=== PATIENT | female | born 1980 | race Caucasian/White ===

== ENCOUNTER 2016-06-18 16:26 | Emergency (ER) | payer OTHER ==
[~2016-06-18] VITALS: Ht 154.9 cm; Wt 50.0 kg
[~2016-06-18 16:26] MED LIST: CLOTCRE17 TOP
[2016-06-18 16:29] VITALS: BP 125/56; PULSE 79; RESP 12; TEMP 97.5; O2SAT 95
--- NOTE | 2016-06-18 18:19 | PD ---
HPI Chief Complaint: Abdominal Pain Time Seen by Provider: 18:19 Travel History International Travel<30 days: No Contact w/Intl Traveler<30days: No Traveled to known affect area: No History of Present Illness HPI 35-year-old female persist to the emergency department for evaluation of lower abdominal pain for 2 days. Describes it as a sharp pain that is constant. Denies any aggravating or alleviating factors. Denies any fever, chills, nausea , vomiting, diarrhea, constipation, bloody stool, dysuria, burning with urination, hematuria, vaginal discharge. States that her last menstrual period was 3 weeks ago. Denies any prior treatment. Denies any prior abdominal surgeries. Denies any medical conditions. She is sexually active but denies any new sexual partners in the last 6 months. No other complaints. PFSH Past Medical History Medical History: Denies Significant Hx Diminished Hearing: No Immunizations Current: Yes ?: Not LMP: 05/2016 Para: 2 Past Surgical History Gynecologic Surgery: Yes (cyst removal from ovary) Other Surgery: Yes (LT BREAST BX) Social History Alcohol Use: No Tobacco Use: No Substance Use: No Allergies-Medications (Allergen,Severity, Reaction): Coded Allergies: Augmentin (Verified Allergy, Mild, RASH A CHILD, 06/18/16) Reported Meds & Prescriptions Reported Meds & Active Scripts Active No Active Prescriptions or Reported Medications Review of Systems Except as stated in HPI: all other systems reviewed are Neg Physical Exam Narrative GENERAL: Well-nourished and well-developed female patient in no acute distress who is nontoxic appearing. SKIN: Warm and dry. HEAD: Normocephalic and atraumatic. EYES: No injection, drainage, or hyphema noted. PERRLA. EOMI. ENT: No nasal drainage noted. Oropharynx is clear. NECK: Supple and the trachea is midline. CARDIOVASCULAR: Regular rate and rhythm. RESPIRATORY: Breath sounds are equal bilaterally with no accessory muscle use, wheezing, rhonchi, or crackles. GASTROINTESTINAL: Mild suprapubic tenderness to palpation. Negative McBurney's point. Negative Phan sign. No rebound tenderness or guarding. Abdomen is soft and nondistended. GENITOURINARY: Normal external genitalia without lesions or erythema. Vaginal vault with scant white discharge. Cervical os was closed without drainage. No cervical motion tenderness. Uterus nontender and nonenlarged. Bilateral adnexa nontender without masses. Performed in the presence of Ava WEEMS. MUSCULOSKELETAL: No obvious deformities, swelling, cyanosis, or ecchymosis is present throughout the upper and lower extremities. Patient has full range of motion without any signs of neurovascular compromise. NEUROLOGICAL: Awake, alert, and oriented. Normal speech and gait. Cranial nerves are grossly intact. Data Data Last Documented VS Vital Signs Date Time Temp Pulse Resp B/P Pulse Ox O2 Delivery O2 Flow Rate FiO2 06/18/16 16:29 97.5 79 12 125/56 95 Room Air Orders Gc And Chlamydia Pcr (06/18/16 18:18) Wet Prep Profile (06/18/16 18:18) Urinalysis - C+S If Indicated (06/18/16 18:18) Ed Urine Pregnancytest Poc (06/18/16 18:18) Labs Laboratory Tests Test 06/18/16 18:35 Clue Cells (Wet Prep) NONE SEEN Vaginal Trichomonas (Wet Prep) NONE SEEN Vaginal Yeast (Wet Prep) NONE SEEN MDM Medical Decision Making Medical Screen Exam Complete: Yes Emergency Medical Condition: Yes Differential Diagnosis UTI versus vaginitis versus cervicitis Narrative Course 35-year-old female presents to the emergency department for evaluation of suprapubic pain for 2 days. Patient is afebrile, vital signs are stable. Abdominal examination is essentially benign. Patient has some mild suprapubic tenderness. Pelvic examination shows that she has some scant white discharge but no cervical motion tenderness. ED urine test is negative. 1900 patient eloped before results were back. Wet prep is negative. Gonorrhea and chlamydia is pending. Unfortunately the urinalysis was never sent. Diagnosis Primary Impression: Abdominal pain Qualified Code: R10.30 - Lower abdominal pain Additional Impression: Left against medical advice Scripts No Active Prescriptions or Reported Meds Disposition: 07 AGAINST MEDICAL ADVICE Cathy Leong Jun 18, 2016 18:19
[2016-06-18 21:08] LABS: CHLAMYDIA PCR NOT DETECTED (NOT DETECT); NEISSERIA PCR NOT DETECTED (NOT DETECT)
[2016-06-18] MEDS ORDERED: PYRI200T4 PO (23:35)
[2016-06-18] MEDS ORDERED: BACT800T5 PO (23:35)
== END 2016-06-18 21:00 | disposition left against medical advice (07) ==
LOC: NETRI 16:26
DX: R10.30 Lower abdominal pain, unspecified (principal)
CPT/HCPCS: 87210; 87491; 87591; 99284

== ENCOUNTER 2016-06-18 21:11 | Emergency (ER) | payer OTHER ==
[~2016-06-18] VITALS: Ht 154.9 cm; Wt 55.0 kg
[2016-06-18 21:12] VITALS: BP 115/64; PULSE 98; RESP 16; TEMP 97.8; O2SAT 97
--- NOTE | 2016-06-18 23:08 | PD ---
HPI Chief Complaint: Abdominal Pain Time Seen by Provider: 22:51 Travel History International Travel<30 days: No Contact w/Intl Traveler<30days: No Traveled to known affect area: No History of Present Illness HPI The patient is a 35-year-old female who presents to the emergency department for dysuria. Patient notes a 1-2 day history of suprapubic discomfort, dysuria, frequency, and mild urgency. The patient was seen in the emergency department earlier today and underwent examination including a pelvic examination with wet prep and gonorrhea/chlamydia. Wet prep was negative and a gonorrhea/chlamydia were negative. However, the patient left prior to having a UA sent to lab. The patient denies any nausea, vomiting, diarrhea, Josué pain , but does note mild suprapubic discomfort. She denies any associated fever, chills, or sweats. Symptoms are mild to moderate, no known alleviating or exacerbating factors. PFSH Past Medical History Diminished Hearing: No Immunizations Current: Yes ?: Not LMP: LAST MONTH Para: 2 Ovarian Cysts: Yes (removed) Past Surgical History Gynecologic Surgery: Yes (cyst removal from ovary) Other Surgery: Yes (LT BREAST BX) Social History Alcohol Use: No Tobacco Use: No Substance Use: No Allergies-Medications (Allergen,Severity, Reaction): Coded Allergies: Augmentin (Verified Allergy, Mild, RASH A CHILD, 06/18/16) Reported Meds & Prescriptions Reported Meds & Active Scripts Active No Active Prescriptions or Reported Medications Review of Systems Except as stated in HPI: all other systems reviewed are Neg General / Constitutional: No: Fever Gastrointestinal: No: Nausea, Vomiting, Diarrhea, Abdominal Pain Genitourinary: Positive: Urgency, Frequency, Dysuria, Pelvic Pain (suprapubic discussed), No: Hematuria, Discharge, Vaginal Bleeding Musculoskeletal: No: Myalgias Skin: No Rash Physical Exam Narrative GENERAL: Awake, alert, nontoxic-appearing 35-year-old female who appears her stated age and is in no acute respiratory distress. SKIN: Warm and dry. HEAD: Atraumatic. Normocephalic. EYES: Pupils equal and round. Extra. The right eye. ENT: No nasal bleeding or discharge. Mucous membranes pink and moist. NECK: Trachea midline. No JVD. GASTROINTESTINAL: Abdomen soft, mild suprapubic tenderness. No rebound tenderness. Back: No CVA tenderness. MUSCULOSKELETAL: No obvious deformities. No clubbing. No cyanosis. No edema. NEUROLOGICAL: Awake and alert. No obvious cranial nerve deficits. Motor grossly within normal limits. Normal speech. PSYCHIATRIC: Appropriate mood and affect; insight and judgment normal. Data Data Last Documented VS Vital Signs Date Time Temp Pulse Resp B/P Pulse Ox O2 Delivery O2 Flow Rate FiO2 06/18/16 21:12 97.8 98 16 115/64 97 Room Air Orders Urinalysis - C+S If Indicated (06/18/16 23:01) Ed Urine Pregnancytest Poc (06/18/16 23:01) Labs Laboratory Tests Test 06/18/16 23:00 Urine Color YELLOW Urine Turbidity HAZY Urine pH 5.5 Urine Specific Fossil 1.033 Urine Protein TRACE mg/dL Urine Glucose (UA) NEG mg/dL Urine Ketones 10 mg/dL Urine Occult Blood TRACE Urine Nitrite NEG Urine Bilirubin NEG Urine Urobilinogen LESS THAN 2.0 MG/DL Urine Leukocyte Esterase NEG Urine RBC 1 /hpf Urine WBC 2 /hpf Urine Squamous Epithelial 1 /hpf Cells Urine Mucus MOD /lpf Microscopic Urinalysis Comment CULT NOT INDICATED MDM Medical Decision Making Medical Screen Exam Complete: Yes Emergency Medical Condition: Yes Medical Record Reviewed: Yes Interpretation(s) Laboratory Tests Test 06/18/16 23:00 Urine Color YELLOW Urine Turbidity HAZY Urine pH 5.5 Urine Specific Fossil 1.033 Urine Protein TRACE mg/dL Urine Glucose (UA) NEG mg/dL Urine Ketones 10 mg/dL Urine Occult Blood TRACE Urine Nitrite NEG Urine Bilirubin NEG Urine Urobilinogen LESS THAN 2.0 MG/DL Urine Leukocyte Esterase NEG Urine RBC 1 /hpf Urine WBC 2 /hpf Urine Squamous Epithelial 1 /hpf Cells Urine Mucus MOD /lpf Microscopic Urinalysis Comment CULT NOT INDICATED Differential Diagnosis Differential diagnosis includes cystitis, UTI, cervicitis, PID, atypical appendicitis, vaginitis, pyelonephritis. Narrative Course I UA was sent to lab. Bedside UA test was obtained, was negative. I reviewed the patient's EMR, she had a pelvic exam performed earlier today by Cathy Leong PA-C, which was unremarkable. The patient had a wet prep performed earlier which was negative as well as gonorrhea and chlamydia which were negative. UA is unremarkable. However, I do not believe the patient has a kidney stone, she has no significant pain. Patient has symptoms consistent with cystitis. I will treat with Bactrim and pirating AVM, she is advised to follow-up with urology if symptoms persist. Diagnosis Primary Impression: Cystitis Patient Instructions: General Instructions Additional Instructions: Medications as directed. Follow-up with urology if symptoms persist. Symptoms sometimes are secondary to interstitial cystitis and/or inflammatory cystitis and not a true infection. Med/Other Pt SpecificInfo: Prescription(s) given Scripts Phenazopyridine (Pyridium)200 Mg Jog199 Mg PO Q8H PRN (DYSURIA) 2 Days Ref 0 Prov:Karl Perdomo MD 06/18/16 Sulfamethoxazole-Trimethoprim (Bactrim DS)800-160 Mg Tab1 Tab PO BID #6 TAB Ref 0 Prov:Karl Perdomo MD 06/18/16 Disposition: 01 DISCHARGE HOME Condition: Stable Karl Perdomo MD Jun 18, 2016 23:08
[2016-06-18 23:25] LABS: BLOOD, URINE TRACE (NEG); COMMENT (UR) CULT NOT INDICATED; CULTURE IF INDICATED CULT NOT INDICATED; GLUCOSE,URINE NEG (NEG); KETONE, URINE 10 mg/dL (NEG); MUCUS URINE MOD /lpf (OCC); NITRITE,URINE NEG (NEG); PH, URINE 5.5 (5.0-8.5); SQUAMOUS EPITHELIAL CELL URINE 1 /hpf (0-5); URINE COLOR YELLOW (YELLW/STRAW)
[2016-06-18] MEDS ORDERED: PYRI200T4 PO (23:35)
[2016-06-18] MEDS ORDERED: BACT800T5 PO (23:35)
== END 2016-06-18 23:50 | disposition home or self-care (01) ==
LOC: NEPD 21:11
DX: N30.90 Cystitis, unspecified without hematuria (principal)
CPT/HCPCS: 81001; 84703; 99283

== ENCOUNTER → 2017-05-28 | Outpatient (CLI) | payer OTHER ==
[~2017-05-28] MED LIST changes: +BACT800T5 PO; -CLOTCRE17 TOP; +PYRI200T4 PO
--- NOTE | 2017-05-28 14:50 | EKG ---
Date Performed: 05/28/2017 Time Performed: 09:36:08 PTAGE: 36 years EKG: Sinus rhythm LEFT ATRIAL ENLARGEMENT MINIMAL ST DEPRESSION ABNORMAL ECG NO PREVIOUS TRACING DOCTOR: Fareed Warren Interpretating Date/Time 05/28/2017 14:49:12
== END ==
LOC: HCAV 09:25
DX: F33.1 Major depressive disorder, recurrent, moderate (principal); F41.1 Generalized anxiety disorder; F90.9 Attention-deficit hyperactivity disorder, unspecified type; R94.31 Abnormal electrocardiogram [ECG] [EKG]
CPT/HCPCS: 93005

== ENCOUNTER 2017-06-29 22:43 | Emergency (ER) | payer OTHER ==
[2017-06-29] MEDS: HYOSCYAMINE 0.125 MG TAB PO (23:20)
== END 2017-06-30 00:22 | disposition home or self-care (01) ==
LOC: NEPD 06-30 00:22
DX: K52.9 Noninfective gastroenteritis and colitis, unspecified (principal); R09.89 Other specified symptoms and signs involving the circulatory and respiratory systems; R05 Cough; R09.81 Nasal congestion
CPT/HCPCS: 99284

== ENCOUNTER 2017-09-02 06:36 | Emergency (ER) | payer OTHER ==
[~2017-09-02 06:36] MED LIST changes: -BACT800T5 PO; +LEVS0.124 SL; -PYRI200T4 PO; +ZOFR4TAB3 SL
[2017-09-02 06:46] VITALS: BP 127/80; PULSE 90; RESP 18; TEMP 98.7; O2SAT 97
[2017-09-02] MEDS ORDERED: SODIUM CHLOR 0.9% 1000 ML INJ 1,000 ML IV SCH (07:43)
[2017-09-02] MEDS ORDERED: DEXAMETHASONE SOD PHOS 4 MG/ML VIAL IV PUSH ONE (07:45)
[2017-09-02] MEDS ORDERED: SODIUM CHLORIDE 0.9% FLUSH 10 ML FLUSH IV FLUSH PRN (07:45)
[2017-09-02] MEDS ORDERED: KETOROLAC TROMETHAMINE 30 MG/ML (IVP) VIAL IV PUSH ONE (07:45)
[2017-09-02] MEDS ORDERED: CLINDAMYCIN 600 MG/NS PREMIX 50 ML IV ONE (07:45)
[2017-09-02] MEDS ORDERED: IBUP1TAB7 PO (07:49)
[2017-09-02] MEDS ORDERED: TRAM50TA PO (07:49)
[2017-09-02] MEDS ORDERED: PERI0.126 SWISH-SPIT (07:49)
[2017-09-02] MEDS ORDERED: CLIN150C14 PO (07:49)
[2017-09-02] MEDS ORDERED: PRED-503 PO (07:49)
--- NOTE | 2017-09-02 07:49 | PD ---
HPI Chief Complaint: Facial Pain or Swelling Time Seen by Provider: 07:34 Travel History International Travel<30 days: No Contact w/Intl Traveler<30days: No Traveled to known affect area: No History of Present Illness HPI 36-year-old female presents to the emergency department with complaint of left upper tooth pain and left-sided facial swelling that started yesterday. Denies sore throat, difficulty swallowing, unusual drooling. Denies fever, vomiting. Has tried using an emergency dental kit with no relief of symptoms. Has not taken any medications to try to alleviate her symptoms. Rates pain 7/10. Describes it as a throbbing sensation. Pain is constant. No known relieving factors. Has a primary care provider but does not know the name. Allergies to Augmentin. Denies significant past medical history. Has no other medical complaints. No other modifying factors or associated signs and symptoms. PFSH Past Medical History ADHD: Yes Anxiety: Yes Depression: Yes Cardiovascular Problems: Yes (unknown valve issue) Diminished Hearing: No Immunizations Current: Yes ?: Not Para: 2 Ovarian Cysts: Yes (removed) Past Surgical History Gynecologic Surgery: Yes (cyst removal from ovary) Other Surgery: Yes (LT BREAST BX) Social History Alcohol Use: No Tobacco Use: No Substance Use: No Allergies-Medications (Allergen,Severity, Reaction): Coded Allergies: amoxicillin (Verified Allergy, Mild, RASH A CHILD, 09/02/17) clavulanic acid (Verified Allergy, Mild, RASH A CHILD, 09/02/17) Reported Meds & Prescriptions Reported Meds & Active Scripts Active Peridex Liq (Chlorhexidine Gluconate (Mouth) Liq) 0.12% Soln 15 Ml SWISH-SPIT BID 10 Days Ibuprofen 800 Mg Tab 800 Mg PO Q6HR PRN Clindamycin (Clindamycin HCl) 150 Mg Cap 450 Mg PO Q6H 10 Days Tramadol (Tramadol HCl) 50 Mg Tab 50 Mg PO Q4H PRN Deltasone (Prednisone) 20 Mg Tab 40 Mg PO DAILY 4 Days start 09/03/2017 Review of Systems Except as stated in HPI: all other systems reviewed are Neg Physical Exam Narrative GENERAL: Well-nourished, well-developed patient, in no acute distress ; afebrile, nontoxic-appearing SKIN: Warm and dry. HEAD: Atraumatic. Normocephalic. Left-sided facial edema and with tenderness on palpation; without erythema. No lymphadenopathy. EYES: Pupils equal and round. No scleral icterus. No injection or drainage. ENT: Mucosa pink and moist. No erythema or exudates. No uvular edema. No uvular , palatal, or tonsillar deviation. Airway patent. EARS: Bilateral pinnae and external canals appear within normal limits. Bilateral tympanic membranes without erythema, dullness or perforation. MOUTH: Mucous membranes moist, no lesions, tongue and gums appear normal. Tooth #13 with tenderness on palpation and decay. Surrounding gingiva is without erythema, edema, drainage. No obvious abscess noted. NECK: Trachea midline. No lymphadenopathy. CARDIOVASCULAR: Regular rate. RESPIRATORY: No accessory muscle use. GASTROINTESTINAL: Flat. MUSCULOSKELETAL: No obvious deformities. No clubbing. No cyanosis. No edema. NEUROLOGICAL: Awake and alert. Oriented 3. No obvious cranial nerve deficits. Motor grossly within normal limits. Normal speech. PSYCHIATRIC: Appropriate mood and affect; insight and judgment normal. Data Data Last Documented VS Vital Signs Date Time Temp Pulse Resp B/P (MAP) Pulse Ox O2 Delivery O2 Flow Rate FiO2 09/02/17 06:46 98.7 90 18 127/80 (96) 97 Orders Orders Iv Access Insert/Monitor (09/02/17 07:43) Sodium Chlor 0.9% 1000 Ml Inj (Ns 1000 M (09/02/17 07:43) Sodium Chloride 0.9% Flush (Ns Flush) (09/02/17 07:45) Ketorolac Inj (Toradol Inj) (09/02/17 07:45) Dexamethasone Inj (Decadron Inj) (09/02/17 07:45) Clindamycin Inj (Cleocin Inj) (09/02/17 08:00) [facility] Medical Decision Making Medical Screen Exam Complete: Yes Emergency Medical Condition: Yes Medical Record Reviewed: Yes Differential Diagnosis Dental abscess, facial swelling, dental pain, infected dental caries Narrative Course 36-year-old female with dentalgia, left-sided facial swelling and dental caries. Patient is afebrile and nontoxic-appearing. Denies fever, vomiting. IV, normal saline bolus, clindamycin 600 mg IV, Decadron 8 mg IV, Toradol IV ordered. Patient provided emergency dental information sheet for follow-up. Tramadol, clindamycin, Peridex mouth rinse, Deltasone prescribed for home. Instructed patient to follow-up with dentist. Instructed patient to follow up with primary care provider. Patient verbalizes understanding and agreement with treatment plan. Patient is medically cleared and stable for discharge. Discussed reasons to return to the emergency department. Patient agrees with treatment plan. The patients vital signs are stable and the patient is stable for outpatient follow-up and treatment. Patient discharged home, stable and in no acute distress. Diagnosis Primary Impression: Tooth pain Additional Impressions: Swelling of left side of face Dental cavities Referrals: [facility] Dentist Primary Care Physician Patient Instructions: Dental Abscess (ED), Dental Caries (ED), General Instructions, Toothache (ED) Departure Forms: Tests/Procedures, Work Release Enter return to work date: Sep 04, 2017 Additional Instructions: Complete full course of antibiotics Ibuprofen or Tylenol as directed and as needed to reduce pain and inflammation Use Peridex as directed for oral hygiene Warm or cool compresses to the affected area Follow-up with dentist Follow-up with primary care provider Return to emergency department immediately with worsening of symptoms Med/Other Pt SpecificInfo: Prescription(s) given Scripts Chlorhexidine Gluconate (Mouth) Liq (Peridex Liq) 0.12% Soln 15 ML SWISH-SPIT BID for 10 Days, #300 ML 0 Refills Prov: Cathy Larson 09/02/17 Ibuprofen (Ibuprofen) 800 Mg Tab 800 MG PO Q6HR Y for PAIN, #30 TAB 0 Refills Prov: Cathy Larson 09/02/17 Clindamycin (Clindamycin) 150 Mg Cap 450 MG PO Q6H for Infection for 10 Days, #120 CAP 0 Refills Prov: Cathy Larson 09/02/17 Tramadol (Tramadol) 50 Mg Tab 50 MG PO Q4H Y for PAIN, #8 TAB 0 Refills Prov: Cathy Larson 09/02/17 Prednisone (Deltasone) 20 Mg Tab 40 MG PO DAILY for 4 Days, #8 TAB 0 Refills start 09/03/2017 Prov: Cathy Larson 09/02/17 Disposition: 01 DISCHARGE HOME Condition: Stable Cathy Larson Sep 02, 2017 07:49
[2017-09-02] MEDS ORDERED: CLINDAMYCIN 600 MG/NS 100 ML IV ONE ×2 (08:00)
== END 2017-09-02 09:25 | disposition home or self-care (01) ==
LOC: NEPD 06:36
DX: K02.9 Dental caries, unspecified (principal); R22.0 Localized swelling, mass and lump, head; F90.9 Attention-deficit hyperactivity disorder, unspecified type; F41.9 Anxiety disorder, unspecified; Z88.0 Allergy status to penicillin; Z88.8 Allergy status to other drugs, medicaments and biological substances; Z79.899 Other long term (current) drug therapy
CPT/HCPCS: 96365; 96375; 99284; J1100; J1885; J7030

== ENCOUNTER → 2017-10-29 | Outpatient (CLI) | payer OTHER ==
[~2017-10-29] MED LIST changes: +CLIN150C14 PO; +IBUP1TAB7 PO; -LEVS0.124 SL; +PERI0.126 SWISH-SPIT; +PRED-503 PO; +TRAM50TA PO; -ZOFR4TAB3 SL
--- NOTE | 2017-10-29 13:50 | EKG ---
Date Performed: 10/29/2017 Time Performed: 11:20:24 PTAGE: 36 years EKG: Sinus rhythm . Poor R wave progression - probable normal variant Septal T wave changes are nonspecific Borderline ECG Compared to prior electrocardiogram, R-wave progression is abnormal but could be due to changes in lead placement. Clinical correlation is suggested. PREVIOUS TRACING : 05/28/2017 09.36 DOCTOR: Fareed Warren Interpretating Date/Time 10/29/2017 13:49:33
== END ==
LOC: HCAV 11:11
DX: F90.9 Attention-deficit hyperactivity disorder, unspecified type (principal); R94.31 Abnormal electrocardiogram [ECG] [EKG]
CPT/HCPCS: 93005